=== PATIENT | male | born 1945 | race African-American/Black ===

== ENCOUNTER → 2018-12-16 | Day surgery (SDC) | payer OTHER ==
[~2018-12-16] MED LIST: NOHOMEMEDICATIONS
[2018-12-16 09:28] LABS: HEMATOCRIT 33.9 % (42.0-52.0); MCH 25.8 pg (26.0-34.0); MCHC 32.5 g/dL (28.0-37.0); MCV 79.6 fL (80.0-100.0); MPV 9.2 fl. (7.2-11.1); RBC 4.25 mil/uL (4.50-6.00)
[2018-12-16 09:56] LABS: CALCIUM 9.8 mg/dL (8.5-10.1); CREATININE 0.9 mg/dL (0.6-1.3); POTASSIUM 4.4 mmol/L (3.5-5.1)
--- NOTE | 2018-12-16 10:44 | EKG ---
[place] [address] ELECTROCARDIOGRAM REPORT Name: MIKA MONTERO Room: [facility].#: [id number] Admission: 12/16/18 Attend Phys: Lee Lopez DO Discharge: Date of : 41 Report #: [id number] THIS REPORT FOR: //name// [facility] Test Date: 2018-12-16 Test Time: 09:26:00 Pat Name: MIKA MONTERO Department: Room: Gender: [employer]: : 1945 Requested By: Lee Lopez Order Number: [id number] Reading MD: Zohaib Valentin Measurements Intervals Krypton Rate: 59 P: -15 MA: 169 QRS: -26 QRSD: 94 T: 64 QT: 406 QTc: 403 Interpretive Statements Sinus rhythm RSR' in V1 or V2, probably normal variant Left ventricular hypertrophy No previous ECG available for comparison Electronically Signed On 12-16-2018 10:44:37 CDT by Zohaib Valentin [email or web address] <ELECTRONICALLY SIGNED> By: Zohaib Valentin MD, [facility] 12/16/18 1044 5 5 Zohaib Valentin MD, [facility] /EPI
[2018-12-16 11:36] LABS: ALBUMIN 4.5 g/dL (3.4-5.0); DIRECT BILIRUBIN 0.1 mg/dL (<0.1-0.3); TOTAL BILIRUBIN 0.4 mg/dL (<0.1-1.0); TOTAL PROTEIN 7.7 g/dL (6.4-8.2)
== END | disposition home or self-care (01) ==
LOC: M.SUR 08:53
PROVIDERS: Internal Medicine Gastroenterology
DX: Z43.1 Encounter for attention to gastrostomy (principal); D64.9 Anemia, unspecified; D69.6 Thrombocytopenia, unspecified; Z87.891 Personal history of nicotine dependence